=== PATIENT | male | born 1980 | race Caucasian/White ===

== ENCOUNTER 2021-10-09 16:13 | Emergency (ER) | payer OTHER, SELFPAY ==
[2021-10-09 16:25] VITALS: BP 140/70; PULSE 85; RESP 19; TEMP 37.2; O2SAT 98; BMI 25.8
--- NOTE | 2021-10-09 16:51 | HMH.EDUTC ---
[facility] [place] Disposition Clinical Impression: Upper respiratory infection, viral Disposition: Home, Self-Care Condition on Discharge: Good Instructions: DI for COVID-19 (Suspected or Confirmed ) Additional Instructions: covid swab was sent to lab, call tomorrow for results. self isolate until test results are known to be negative No sign of a bacterial infection. Likely viral. Viruses can take 7-14 days to run their course. Nasal saline and bulb syringe or nose Suzy to remove nasal drainage to help with nasal congestion. Hard to eat, drink, sleep with nasal congestion so important to keep this cleaned out. Monitor temp. Tylenol or Motrin as needed for pain or fever Encourage fluids, water, Gatorade, Powerade, Pedialyte if infant/toddler/child Warm salt water gargles Warm fluids Sore throat lozenges Sleep elevated Humidifier/vaporizer Follow-up immediately for new or worsening symptoms or no noticeable improvement over the next 48-72 hours. Referrals: Tata Limon MD [Primary Care Provider] - Time of Disposition: 16:55 Medical Decision Making - Rohan Inquiry Pt receiving controlled substance: No Orders (Tests/Meds): ORDERS Category Date Time Status Full Resp Panel w/COVID ([facility]) Routine Lab 10/09/21 16:42 Ordered [facility] [place] HPI - General Chief complaint: Urgent Treatment Center Stated complaint: ear pain,headache,muscle pain Time Seen by Provider: 10/09/21 16:51 Mode of Arrival: Ambulatory Source of Information: Patient Limitations: No Limitations - History of Present Illness Provider Complaint: 41 yr old male presents for sore throat,ear pain,loss of taste,muscle pain and stiffness. - Related Data Home Medications Medication Instructions Recorded Confirmed Fluticasone Propionate [Flonase 2 spray INTRANASAL DAILY 07/20/19 Allergy Relief NS] Allergies Allergy/AdvReac Type Severity Reaction Status Date / Time No Known Allergies Allergy Verified 07/20/19 05:25 [facility] History - Hepatitis A Screen Attestation statement:: This patient has been screened for Hepatitis A risk factors. I have reviewed the patient's past medical history: Yes - Social History Smoking Status: Current every day smoker Alcohol Intake: never Occupational Status: employed Family Hx:: Hypertension ROS Obtained: Yes Systems reviewed as appropriate & no additional complaints - Constitutional Constitutional: Reports system reviewed and no additional complaints, except as docu, Denies body ache, Reports fatigue, Denies fever(s), Reports poor appetite - Eyes Eyes: Reports system reviewed and no additional complaints, except as docu, Denies blurry vision - ENT Ears, Nose, Mouth, and Throat: Reports system reviewed and no additional complaints, except as docu, Reports otalgia, Reports nasal congestion, Reports sore throat - Cardiovascular Cardiovascular: Reports system reviewed and no additional complaints, except as docu, Denies chest pain - Respiratory Respiratory: Reports system reviewed and no additional complaints, except as docu - Gastrointestinal Gastrointestingal: Reports: system reviewed and no additional complaints, except as docu. Denies: bloating - Musculoskeletal Musculoskeletal: Reports system reviewed and no additional complaints, except as docu, Denies joint pain - Integumentary/Breasts Skin/Breast: Reports system reviewed and no additional complaints, except as docu, Denies rash - Neurologic Neurologic: Reports system reviewed and no additional complaints, except as docu, Denies dizziness - Endocrine Endocrine: Reports system reviewed and no additional complaints, except as docu, Denies fatigue - Hematologic/Lymphatic Henatologic/Lymphatic: Reports system reviewed and no additional complaints, except as docu, Denies lymphadenopathy - Allergic/Immunologic Allergic/Immunologic: Reports system reviewed and no additional complaints, except as docu, Denies itchy eyes Physical Exam - Gen
[2021-10-09 17:07] VITALS: BP 140/70; PULSE 85; RESP 19; TEMP 37.2; O2SAT 98
[2021-10-09 17:22] LABS: Adenovirus,PCR Not Detected (NotDetected); Bordetella Pertussis Not Detected (NotDetected); Chlamydophila Pneumoniae, PCR Not Detected (NotDetected); Coronavirus 229E Not Detected (NotDetected); Coronavirus NL63 Not Detected (NotDetected); Coronavirus OC43 Not Detected (NotDetected); Coronovirus HKU1,PCR Not Detected (NotDetected); Human Metapneumovirus Not Detected (NotDetected); Influenza A, PCR Not Detected (NotDetected); Influenza AH1, 2009 Not Detected (NotDetected); Influenza AH1, PCR Not Detected (NotDetected); Influenza AH3,PCR Not Detected (NotDetected); Influenza B, PCR Not Detected (NotDetected); Mycoplasma Pneumoniae, PCR Not Detected (NotDetected); Parainfluenza 1, PCR Not Detected (NotDetected); Parainfluenza 2, PCR Not Detected (NotDetected); Parainfluenza 3, PCR Not Detected (NotDetected); Parainfluenza 4, PCR Not Detected (NotDetected); Respiratory Syncytial Virus Not Detected (NotDetected); Rhinovirus/Enterovirus Not Detected (NotDetected)
[2021-10-09 20:15] LABS: Coronavirus 19, PCR Detected (NotDetected)
== END 2021-10-09 17:10 | disposition home or self-care (01) ==
PROVIDERS: Emergency Provider Nurse Practitioner Family; PCP Family Medicine
DX: U07.1 COVID-19 (principal); J06.9 Acute upper respiratory infection, unspecified; F17.210 Nicotine dependence, cigarettes, uncomplicated
CPT/HCPCS: 87581; 87632; 87798; 99202; C9803; G0463; U0003; U0005

== ENCOUNTER → 2021-12-16 10:11 | Outpatient (CLI) | payer OTHER, SELFPAY ==
[2021-12-17 06:35] LABS: Covid-19 Nasal PCR Sendout Lex NOT DETECTED
== END ==
PROVIDERS: Visit Provider Nurse Practitioner
DX: Z20.822 Contact with and (suspected) exposure to COVID-19 (principal)
CPT/HCPCS: C9803; U0004; U0005

== ENCOUNTER 2022-08-12 14:16 | Emergency (ER) | payer OTHER, SELFPAY ==
[2022-08-12 14:59] LABS: UTC Strep Screen (Rapid) Negative (Negative)
[2022-08-12 15:00] VITALS: BP 132/95; PULSE 66; RESP 18; TEMP 37.2; O2SAT 99; BMI 25.8
--- NOTE | 2022-08-12 15:03 | EXP.UTC ---
Discharge Plan Disposition Patient Disposition: Home, Self-Care Condition: Good Prescriptions Prescriptions: New omeprazole 20 mg capsule,delayed release(DR/EC) 20 mg PO DAILY 30 Days Qty: 30 1RF No Action fluticasone propionate 9.9 ML spray,suspension 2 spray intranasal DAILY Rx Instructions: administer into each nostril Referrals Follow up/Referrals: Tata Limon MD [Primary Care Provider] - See instructions Activity Restrictions/Add. Instructions Additional Instructions/Restrictions: Follow up with your Family Doctor for further evaluation and testing if symptoms persist Return if needed Straight to ER if any life threatening symptoms Do not eat or drink at least 1hr before bed and make sure to sit up at least 30min after eating Avoid spicy foods, caffiene and soda to help with heartburn Clinical Impressions Clinical Impression: Sore throat Instructions Patient Instructions: DI for Gastroesophageal Reflux Disease (GERD), GERD Diet, Omeprazole Discharge ED Provider: Nancy Hernandez [facility] [place] General Stated complaint: Neck & lymph nodes swollen Mode of Arrival: Ambulatory Source of Information: Patient Limitations: No Limitations Time Seen by Provider: 08/12/22 15:03 Description of Symptoms (Recalled from Triage Doc. by RN): pt comes in with c/o swollen neck, swollen lymph nodes, pain when swallowing. pt states symptoms have been ongoing for 5 months, he was seen by pcp and blood was drawn, but nothing else. HEENT Symptoms (Recalled from RN notes): Yes Resp Symptoms (Recalled from RN notes): Yes Skin Symptoms (Recalled from RN notes): No MS Symptoms (Recalled from RN notes): No Functional Status (Recalled from RN notes): n/a History of Present Illness Provider Complaint: Patient states that he has having pain on and off when he swallows, feeling like the glands in his throat is swollen and tender, having gerd that is worse at night when he lays down and sometimes will belch up stomach acid which makes his throat burn and felt like his left ear has been stopped up for about 5mths States that today his throat was still irritated so he came in to get checked Related Data Home Medications Medication Instructions Recorded Confirmed fluticasone propionate 50 2 spray intranasal DAILY allergies 07/20/19 mcg/actuation nasal spray,suspension Previous Rx's Medication Instructions Recorded omeprazole 20 mg capsule,delayed 20 mg PO DAILY 30 days #30 caps 08/12/22 release Allergies Allergy/AdvReac Type Severity Reaction Status Date / Time No Known Allergies Allergy Verified 07/20/19 05:25 Worker's Comp Is this a Worker's Comp case?: No PFSH PFSH Social History Smoking Status: Current every day smoker alcohol intake: never current occupational status: employed Travel in the last 8 weeks: None ROS Obtained: Yes All systems reviewed & no additional complaints except as documented and Yes Systems reviewed as appropriate & no additional complaints except as documented Constitutional Constitutional: Reports system reviewed and no additional complaints, except as documented, Reports as per HPI, Denies body ache, Denies chills, Denies fever(s) and Denies headache(s) ENT Ears, Nose, Mouth, and Throat: Reports system reviewed and no additional complaints, except as documented, Reports as per HPI, Reports otalgia, Denies headache(s), Reports sore throat and Reports other Comments: feels like glands in throat is swollen and tender, denies trouble swallowing denies trouble eating or drinking Cardiovascular Cardiovascular: Reports system reviewed and no additional complaints, except as documented and Reports as per HPI Respiratory Respiratory: Reports system reviewed and no additional complaints, except as documented, Denies as per HPI and Denies shortness of breath Gastrointestinal Gastrointestingal: Reports system reviewed and no additional complaints, except as documented, a
[2022-08-12 15:29] VITALS: BP 132/95; PULSE 66; RESP 18; TEMP 531.6; TEMP 989; O2SAT 99
== END 2022-08-12 15:30 | disposition home or self-care (01) ==
PROVIDERS: Emergency Provider Nurse Practitioner; PCP Family Medicine
DX: J02.9 Acute pharyngitis, unspecified (principal)
CPT/HCPCS: 87880; 99212; G0463

== ENCOUNTER 2022-11-03 13:12 | Emergency (ER) | payer OTHER, SELFPAY ==
--- NOTE | 2022-11-03 13:55 | PC.NURSE ---
SVITLANA HICKMAN at
[2022-11-03 14:00] VITALS: BP 151/96; PULSE 102; O2SAT 100
[2022-11-03 14:01] VITALS: BP 150/87; PULSE 101; RESP 16; TEMP 37.1; O2SAT 98; BMI 25.8
--- NOTE | 2022-11-03 14:01 | XR_ITS ---
FINAL REPORT CLINICAL HISTORY: neck pain, swelling FINDINGS: Two views were obtained. Airway appears patent. The epiglottis is unremarkable. No radiopaque foreign body is identified. Precervical soft tissues are unremarkable. IMPRESSION: Unremarkable exam. Reviewed, Interpreted and Dictated by Manjit Martini MD Transcribed by Chana Mixon Authenticated and [facility]
--- NOTE | 2022-11-03 14:01 | XR_ITS ---
FINAL REPORT CLINICAL HISTORY: cough, recent COVID, SOB FINDINGS: TWO-VIEW CHEST Two views of the chest were obtained. The heart size and pulmonary vascularity are within normal limits. The mediastinum is normal. No acute pulmonary abnormality is identified. There is no pneumothorax. The bony thorax is intact. IMPRESSION: No active cardiopulmonary disease. Reviewed, Interpreted and Dictated by Manjit Martini MD Transcribed by Chana Mixon Authenticated and [facility]
--- NOTE | 2022-11-03 14:01 | HMH.EDGENADL ---
Discharge Plan Disposition Patient Disposition: Home, Self-Care Condition: Good Prescriptions Prescriptions: New Chloraseptic Sore Throat 6-10 mg lozenge 1 shanita mucous membrane Q6H PRN (Reason: mouth irritation) Qty: 18 0RF No Action omeprazole 20 mg capsule,delayed release(DR/EC) 20 mg PO DAILY 30 Days Qty: 30 1RF fluticasone propionate 9.9 ML spray,suspension 2 spray intranasal DAILY Rx Instructions: administer into each nostril Referrals Follow up/Referrals: Tata Limon MD [Primary Care Provider] - See instructions Fernanda Junior APRN [Nurse Practitioner] - See instructions Clinical Impressions Clinical Impression: Sore throat, Paranoid behavior Instructions Patient Instructions: Sore Throat, DI for Anxiety -- Adult, DI for Psychosis Discharge ED Provider: Jimmy Gustafson General Adult HPI General Chief complaint: Psychiatric Symptoms Stated complaint: possible neck swelling, disoriented Time Seen by Provider: 11/03/22 13:54 History of Present Illness HPI narrative: 42-year-old male who presents with complaint of neck discomfort, does report he has had a similar sensation to this for approximately 7 months. He admits to having excessively used marijuana and hashish in the preceding months and he thought that was contributing to discomfort so he had stopped and has been clean for the last 3 months. Denies any other acute drug use, specifically no stimulants such as methamphetamine or cocaine. He states he was diagnosed with COVID last Monday and feels like he has had more swelling and irritation of the neck since then. He is not having difficulty breathing, is maintaining secretions, has some mild odynophagia. He denies any fevers, nausea, vomiting. He does state that he feels the symptoms have made him paranoid and disoriented. On further elaboration in reveals the symptoms have been going on for years. He states he is never seen a mental health provider and is not currently treated on any psychiatric medications. He does not have any psychiatric diagnoses. He denies any recent emotional trauma, denies thoughts of self-harm or harm to others. Does not report overt visual or auditory hallucinations, but states he will intermittently feel paranoid like people are in the room or watching him when they are not. Related Data Home Medications Medication Instructions Recorded Confirmed fluticasone propionate 50 2 spray intranasal DAILY allergies 07/20/19 mcg/actuation nasal spray,suspension Previous Rx's Medication Instructions Recorded omeprazole 20 mg capsule,delayed 20 mg PO DAILY 30 days #30 caps 08/12/22 release benzocaine 6 mg-menthol 10 mg 1 shanita mucous membrane Q6H PRN 11/03/22 lozenges (Chloraseptic Sore Throat) mouth irritation #18 ea Allergies Allergy/AdvReac Type Severity Reaction Status Date / Time No Known Allergies Allergy Verified 07/20/19 05:25 [facility] Disclaimer: The information contained in this section may have been updated after the patient was seen, as this information can be updated by other users. Social History Smoking Status: Current some day smoker alcohol intake: never current occupational status: employed Travel in the last 8 weeks: None ROS Obtained: Yes Systems reviewed as appropriate & no additional complaints except as documented Constitutional Constitutional: Reports system reviewed and no additional complaints, except as documented Eyes Eyes: Reports system reviewed and no additional complaints, except as documented ENT Ears, Nose, Mouth, and Throat: Reports system reviewed and no additional complaints, except as documented Cardiovascular Cardiovascular: Reports system reviewed and no additional complaints, except as documented Respiratory Respiratory: Reports system reviewed and no additional complaints, except as documented Gastrointestinal Gastrointest
--- NOTE | 2022-11-03 14:10 | PC.NURSE ---
pt gone to radiology
[2022-11-03 14:30] VITALS: BP 118/71; PULSE 77; O2SAT 99
--- NOTE | 2022-11-03 15:06 | HMH.EDGENADL ---
Discharge Plan Disposition Patient Disposition: Home, Self-Care Condition: Good Prescriptions Prescriptions: New Chloraseptic Sore Throat 6-10 mg lozenge 1 shanita mucous membrane Q6H PRN (Reason: mouth irritation) Qty: 18 0RF prednisone 50 mg tablet 50 mg PO DAILY 5 Days Qty: 5 0RF No Action omeprazole 20 mg capsule,delayed release(DR/EC) 20 mg PO DAILY 30 Days Qty: 30 1RF fluticasone propionate 9.9 ML spray,suspension 2 spray intranasal DAILY Rx Instructions: administer into each nostril Referrals Follow up/Referrals: Tata Limon MD [Primary Care Provider] - See instructions Fernanda Junior APRN [Nurse Practitioner] - See instructions Clinical Impressions Clinical Impression: Sore throat, Paranoid behavior Instructions Patient Instructions: Sore Throat, DI for Anxiety -- Adult, DI for Psychosis Discharge ED Provider: Jimmy Gustafson Adult HPI General Chief complaint: Psychiatric Symptoms Stated complaint: possible neck swelling, disoriented Time Seen by Provider: 11/03/22 13:54 Mode of Arrival: Ambulatory Source of Information: Patient Limitations: No Limitations Description of Symptoms (Recalled from ER Triage Doc. by RN): pt comes in with c/o paranoia, swollen neck/throat. pt was diagnosed with covid 10/28from a home test, pt states after he found that out felt as though people were out to get him. pt does admit to smoking pot. pt states neck swelling has been going on for 7-8 months Related Data Home Medications Medication Instructions Recorded Confirmed fluticasone propionate 50 2 spray intranasal DAILY allergies 07/20/19 mcg/actuation nasal spray,suspension Previous Rx's Medication Instructions Recorded omeprazole 20 mg capsule,delayed 20 mg PO DAILY 30 days #30 caps 08/12/22 release benzocaine 6 mg-menthol 10 mg 1 shanita mucous membrane Q6H PRN 11/03/22 lozenges (Chloraseptic Sore Throat) mouth irritation #18 ea prednisone 50 mg tablet 50 mg PO DAILY 5 days #5 tabs 11/03/22 Allergies Allergy/AdvReac Type Severity Reaction Status Date / Time No Known Allergies Allergy Verified 07/20/19 05:25 [facility] Disclaimer: The information contained in this section may have been updated after the patient was seen, as this information can be updated by other users. Social History Smoking Status: Current some day smoker alcohol intake: never current occupational status: employed Travel in the last 8 weeks: None Physical Exam General General appearance: alert and in no apparent distress Medical Decision Making Vital Signs: 11/03/22 14:01 11/03/22 14:00 11/03/22 14:30 Temperature 98.8 F Temperature Source Oral Pulse Rate 102 H 77 Pulse Rate [Left Radial] 101 H Respiratory Rate 16 Blood Pressure 151/96 H 118/71 Blood Pressure [Right Arm] 150/87 H Blood Pressure Mean 122 94 Blood Pressure Mean [Right Arm] 108 02 Sat by Pulse Oximetry 98 100 99 Oxygen Delivery Method Room Air Room Air Orders (Tests/Meds): ED MEDICATIONS Discontinued Medications Generic Name Dose Route Start Last Admin Trade Name Freq PRN Reason Stop Dose Admin Ketorolac Tromethamine 30 mg 11/03/22 14:01 11/03/22 14:12 Ketorolac 30mg/Ml Vial IM 11/03/22 14:02 30 mg ONCE ONE Administration ORDERS Category Date Time Status Chest XR 2 view (NOT portable) [XR chest 2V] Stat Exams 11/03/22 14:01 Completed XR soft tissue neck Stat Exams 11/03/22 14:01 Completed Critical Care Time Critical Care Time Attestation: On 11/03/22, the high probability of a clinically significant, sudden or life threatening deterioration of the following system(s) required my full and direct attention, intervention and personal management. The time I documented below is in addition to time spent performing reported procedures but includes the following listed in this critical ca
[2022-11-03 15:08] VITALS: BP 152/88; PULSE 69; RESP 18; TEMP 36.9
== END 2022-11-03 15:09 | disposition home or self-care (01) ==
LOC: UTC 13:14 → ER 13:45
PROVIDERS: Emergency Provider Emergency Medicine; PCP Family Medicine
DX: F60.0 Paranoid personality disorder (principal); J02.9 Acute pharyngitis, unspecified; M54.2 Cervicalgia; F17.210 Nicotine dependence, cigarettes, uncomplicated
CPT/HCPCS: 70360; 71046; 96374; 99285

== ENCOUNTER 2023-04-26 12:26 | Day surgery (SDC) | payer OTHER, SELFPAY ==
[2023-04-17 12:51] VITALS: BMI 26.4
[2023-04-26 12:42] VITALS: BP 122/72; PULSE 65; RESP 18; TEMP 36.7; O2SAT 100
--- NOTE | 2023-04-26 13:18 | EXP.ANES.CKL ---
[facility] Disclaimer: The information contained in this section may have been updated after the patient was seen, as this information can be updated by other users. Medical History Impacted cerumen of left ear Major depressive disorder Tinnitus Surgical History No significant past surgical history Family History Other No significant family history Social History Smoking Status: Former smoker quit date: 02/17/23 second hand exposure: No alcohol intake: current counseling given: No substance use type: former substance user, marijuana and crack/cocaine counseling given: No (denies using anything currently) current occupational status: employed Travel in the last 8 weeks: None adopted: No caregiver/support person: No foster care: No household members: none lives independently: Yes marital status: single number of children: 0 number of grandchildren: 0 education level: high school service: No longterm: No current occupation: [employer] Recent Travel: No sexually active: No caffeine: Yes physical activity: none pan/adventism: None special pan needs: No working smoke detector in home: Yes fire extinguisher in home: No carbon monox detector in home: No firearms in home: Yes do you feel safe at home: Yes victim of physical abuse: No victim of emotional abuse: No victim of sexual abuse: No would you like helpful sources: No [facility] Anesthesia Checklist Patient Identification Patient Identification: Arm Band and Verbal (Name & ) Structural Data Admitted From: Home Planned Operative Procedure/s: EGD/Colonoscopy Consent for Planned Operative Procedure(s) Verified: Yes NPO Status Verified Time NPO: 00:00 Airway Assessment C-Spine Mobility Assessed: Yes TMJ Mobility Assessed: Yes Dentition: Good Dentition Neurological Assessment Level of Consciousness: Awake Hx Seizures: No Numbness or tingling in extremities: No Anesthesia Plan Anesthesia Risk discussed: Yes Anesthesia Plan: Verified ASA Class: II Anesthesia Type: MAC
[2023-04-26 13:54] VITALS: O2SAT 97
--- NOTE | 2023-04-26 14:24 | HMH.SCOPE ---
Procedure: Date: 04/26/23 Patient Date of :: 1980 Procedure Performed:: Colonoscopy Indications:: History of polyp Performing Provider:: Owen Jorge MD Referring Provider:: Kelle Mendez APRN Sedation:: See RN records Procedure:: After placing the patient in the left lateral decubitus position, the colonoscopy was gently inserted into the rectum and under direct visualization advanced to the cecum which was identified by transillumination in the right lower quadrant, identification of the ileocecal valve, appendiceal orifice, and cecal strap. Color, texture, mucosa, and anatomy of the colon were carefully examined with the scope. Bowel preparation was good to fair Findings:: Anal canal: normal Rectum: hemorrhoids Sigmoid colon: mild diverticulosis Descending colon: normal without polyps or inflammatory changes Splenic flexure: normal Transverse colon: normal without polyps or inflammatory changes Hepatic flexure: normal Ascending colon: normal without polyps or inflammatory changes Cecum: Polyp less than 5 mm in size. Removed with cold forceps Terminal ileum: not visualized Impression: Polyp of cecum Mild sigmoid diverticulosis Recommendations:: Await pathology results Higher fiber diet Repeat colonoscopy in 5 years Complications:: None Estimated blood obtained (mL): 0 Colonoscopy Component Colonoscopy Component Was a colonoscopy performed during today's procedure?: Yes Recommended follow up colonoscopy of at least 10 years?: Yes
[2023-04-26 14:25] VITALS: BP 94/55; PULSE 65; RESP 18; TEMP 36.4; O2SAT 94
--- NOTE | 2023-04-26 14:26 | HMH.SCOPE ---
Procedure: Date: 04/26/23 Patient Date of :: 1980 Procedure Performed:: EGD Indications:: Abdominal pain Performing Provider:: Owen Jorge MD Referring Provider:: Kelle Mendez APRN Sedation:: See RN records Procedure:: The gastroscope was gently passed through the incisoral orifice into the oral cavity and under direct visualization the esophagus was intubated. The endoscope was passed down the esophagus, through the stomach, and into the duodenum. Color, texture, mucosa, and anatomy of the esophagus, stomach, and duodenum were carefully examined with the scope. Findings:: Oropharynx: normal Esophagus: Non obstructing Schatzki ring EG Junction: intact at 40 cm Cardia: small hiatal hernia Fundus: normal Body: Gastritis. Biopsy obtained Antrum: Gastritis. Focal area of heaped up mucosa, may be area of prior ulcer. Biopsies obtained Duodenal bulb: normal Duodenum (second and third portion): normal Impression: Non obstructing schatzki ring Small hiatal hernia Gastritis Focal area of hepaed up, inflammed appering mucosa within the antrum along greater curvature. May be an area of healing ulcer. Recommendations:: Await pathology results Avoid NSAIDs when possible If biopsies show H.pylori infection, recommend treatment and then evaluation for eradication Move forward to colonoscopy Complications:: None Estimated blood obtained (mL): 0 Colonoscopy Component Colonoscopy Component Was a colonoscopy performed during today's procedure?: No
[2023-04-26 14:40] VITALS: BP 95/56; PULSE 58; RESP 18; O2SAT 94
[2023-04-26 14:55] VITALS: BP 94/57; PULSE 521; RESP 18; O2SAT 95
[2023-04-26 15:10] VITALS: BP 110/75; PULSE 51; RESP 18; O2SAT 93
== END 2023-04-26 15:15 | disposition home or self-care (01) ==
PROVIDERS: PCP Nurse Practitioner Family; Visit Provider Internal Medicine
PROC: 0DJ08ZZ Inspection of Upper Intestinal Tract, Via Natural or Artificial Opening Endoscopic (ICD-10-PCS; CPT 43235; principal; 2023-04-26 13:30)
DX: Z12.11 Encounter for screening for malignant neoplasm of colon (principal); K29.50 Unspecified chronic gastritis without bleeding; D12.0 Benign neoplasm of cecum; K22.2 Esophageal obstruction; K44.9 Diaphragmatic hernia without obstruction or gangrene; K64.8 Other hemorrhoids; K57.30 Diverticulosis of large intestine without perforation or abscess without bleeding
CPT/HCPCS: 45380; 43239; J2704